=== PATIENT | female | born 1970 | race American Indian/Alaskan Native ===

== ENCOUNTER 2017-02-23 09:06 | Emergency (ER) | payer OTHER ==
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
[2017-02-23] MEDS ORDERED: FLEXERIL PO ONE (10:31)
[2017-02-23] MEDS ORDERED: MOTRIN PO ONE (10:31)
[2017-02-23 11:19] VITALS: BP 136/75
== END 2017-02-23 11:24 | disposition home or self-care (01) ==
LOC: ED 09:06
DX: M79.1 Myalgia (principal); I10 Essential (primary) hypertension; V49.49XA Driver injured in collision with other motor vehicles in traffic accident, initial encounter; Y93.9 Activity, unspecified; Y92.9 Unspecified place or not applicable; Y99.9 Unspecified external cause status
CPT/HCPCS: 93005; 93010; 99282